=== PATIENT | female | born 1980 | race Caucasian/White ===

== ENCOUNTER 2017-10-03 07:23 | Emergency (ER) | payer OTHER ==
[~2017-10-03] VITALS: Ht 157.5 cm; Wt 75.7 kg
[~2017-10-03 07:23] MED LIST: LOPERAMIDE2 MG PO; OMEPRAZOLE DR20 M1 PO; PRILOSEC20 MG PO
[2017-10-03 07:28] VITALS: BP 126/88; Ht 157.5 cm; Wt 75.7 kg
== END 2017-10-03 08:03 | disposition home or self-care (01) ==
LOC: ED 07:23
DX: S71.112D Laceration without foreign body, left thigh, subsequent encounter (principal); L03.116 Cellulitis of left lower limb; J45.909 Unspecified asthma, uncomplicated; Z88.6 Allergy status to analgesic agent; X58.XXXD Exposure to other specified factors, subsequent encounter

== ENCOUNTER 2017-10-18 03:00 | Inpatient (IN) | payer OTHER ==
[~2017-10-18] VITALS: Ht 157.5 cm; Wt 75.3 kg
[2017-10-18 03:07] VITALS: Ht 157.5 cm; Wt 75.3 kg
[2017-10-18 04:37] LABS: BASOPHIL % 0.2 % (0-2); PLATELET COUNT 396 x10^3mcL (130-400); RED CELL DISTRIBUTION WIDTH 13.2 % (11.5-14.5)
[2017-10-18 04:50] LABS: CALCIUM 9.2 mg/dL (8.5-10.1); CARBON DIOXIDE 31.6 mmol/L (21-32); CHLORIDE SERUM 103 mmol/L (98-107); CREATININE SERUM 0.7 mg/dL (0.6-1.0); GFR1 > 60 mL/min; GLUCOSE SERUM 94 mg/dL (74-106); SODIUM SERUM 139 mmol/L (136-145)
[2017-10-18 04:56] LABS: ALKALINE PHOSPHATASE 92 U/L (46-116); ALT/SGPT 36 U/L (14-59); AST/SGOT 25 U/L (15-37); BILIRUBIN TOTAL 0.47 mg/dL (0.20-1.00); LIPASE 181 IU/L (73-393); TOTAL PROTEIN, SERUM 6.6 g/dL (6.4-8.2)
[2017-10-18 04:57] LABS: ALBUMIN 2.7 g/dL (3.4-5.0)
[2017-10-18 08:48] LABS: UA SPECIFIC GRAVITY <=1.005 (1.005-1.035); microscopic required? YES; urine erythrocyte TRACE (NEGATIVE)
[2017-10-18 10:51] VITALS: BP 112/70
[2017-10-18 14:47] VITALS: BP 113/66
[2017-10-18 17:24] VITALS: BP 109/55
[2017-10-18 20:57] VITALS: BP 103/62
[2017-10-19 05:40] VITALS: BP 108/60
[2017-10-19 09:29] VITALS: BP 105/53
[2017-10-19 16:57] VITALS: BP 99/51
[2017-10-19 21:34] VITALS: BP 96/50
[2017-10-20 05:28] VITALS: BP 104/57
[2017-10-20 09:48] VITALS: BP 120/72
[2017-10-20 13:42] VITALS: BP 120/72
== END 2017-10-20 14:59 | disposition home or self-care (01) | DRG 813 ==
LOC: ED 03:00 → MU 09:18 → EDBEDREQ 09:20 → MU 11:07
PROVIDERS: Emergency Medicine
DX: K91.872 Postprocedural seroma of a digestive system organ or structure following a digestive system procedure (principal); F32.9 Major depressive disorder, single episode, unspecified; F41.9 Anxiety disorder, unspecified; J45.909 Unspecified asthma, uncomplicated; G89.18 Other acute postprocedural pain; Z88.6 Allergy status to analgesic agent; Z90.49 Acquired absence of other specified parts of digestive tract
CPT/HCPCS: 82962; J2270; J2405; J7030; Q0092; Q9967

== ENCOUNTER 2017-10-29 02:56 | Emergency (ER) | payer SELFPAY ==
[~2017-10-29] VITALS: Ht 157.5 cm; Wt 77.6 kg
[2017-10-29 03:07] VITALS: Ht 157.5 cm; Wt 77.6 kg
[2017-10-29 04:07] VITALS: BP 123/73
== END 2017-10-29 04:07 | disposition home or self-care (01) ==
LOC: ED 02:56
DX: Z48.01 Encounter for change or removal of surgical wound dressing (principal); J45.909 Unspecified asthma, uncomplicated; Z88.6 Allergy status to analgesic agent

== ENCOUNTER 2017-11-05 01:38 | Emergency (ER) | payer SELFPAY ==
[~2017-11-05] VITALS: Ht 157.5 cm; Wt 75.7 kg
[2017-11-05 01:44] VITALS: Ht 157.5 cm; Wt 75.7 kg
[2017-11-05 02:44] VITALS: BP 126/80
== END 2017-11-05 02:44 | disposition home or self-care (01) ==
LOC: ED 01:38
DX: F41.9 Anxiety disorder, unspecified (principal); J45.909 Unspecified asthma, uncomplicated; Z88.6 Allergy status to analgesic agent